=== PATIENT | male | born 1985 | race Two or more races ===

== ENCOUNTER 2019-10-03 15:18 | Emergency (ER) | payer MEDICAID, OTHER ==
[~2019-10-03] VITALS: Ht 165.1 cm; Wt 135.2 kg
--- NOTE | 2019-10-03 15:36 | NUR ---
ED Nurse Note: PT FROM HOME WALKED IN DUE TO BLEEDING FROM HIS PENIS. PT HAS SEXUAL INTERCOURSE AND HAD SKIN TEAR WITH UNCONTROLLED BLEEDING ON THE TIP OF HIS PENIS RIGHT AFTER. PT HAD HEART TRANSPLANT 22 DAYS AGO AT [facility] AND IS CURRENTLY TAKING ASA 81MG. AAO X4, AMBULATORY. BLEEDING AT THIS TIME IS CONTROLLED.
--- NOTE | 2019-10-03 15:50 | Emergency Room Report ---
History of Present Illness General Chief Complaint: Laceration Source: Patient Present Illness HPI Disclaimer: Please note that this report is being documented using DRAGON technology. This can lead to erroneous entry secondary to incorrect interpretation by the dictating instrument. HPI: 34-year-old male presents for evaluation of laceration to the penis. Patient was engaged in sexual intercourse proximally 1 hour ago felt a sharp pain and noticed some brisk bleeding from the tip of the foreskin. Applied pressure but could not control bleeding. He takes aspirin but no anticoagulants. He was recently the recipient of a heart transplant 1 month ago. Was receiving anticoagulants in the hospital but not discharged on any. Continues to experience some oozing. Denies any pain. No other trauma reported. PMH: Heart transplant PSH: Heart transplant Allergies: Denies Allergies: Coded Allergies: No Known Allergies (Unverified , 10/03/19) Nursing Documentation-PM Past Medical History: No History, Except For Hx Cardiac Problems: Yes - heart transplant 09/2019 Review of Systems All Other Systems: negative except mentioned in HPI Physical Exam Vital Signs Date Time Temp Pulse Resp B/P (MAP) Pulse Ox O2 Delivery O2 Flow Rate FiO2 10/03/19 15:26 99.0 94 18 141/95 (110) 96 Room Air General: Awake and alert, no acute distress HEENT: NC/AT. EOMI. Resp: Normal work of breathing Skin: There is small amount of oozing coming from the frenulum of the penis. Nonpulsatile. No surrounding visible trauma. MSK: Normal tone and bulk. Moving all extremities. No obvious deformity. Neuro: Awake and alert. Mentating appropriately Medical Decision Making Diagnostic Impression: Primary Impression: Laceration ER Course 34-year-old male presents for evaluation of bleeding from the frenulum of the penis sustained a sexual intercourse. He is taking aspirin from a recent heart transplant. Continues to ooze on arrival. TXA soaked gauze was applied which achieved hemostasis. No evidence of rebleeding 1 hour after arrival. He is well-appearing with stable vital signs and stable for outpatient follow-up. Instructed him to abstain from sexual activity until he is fully healed. I also instructed him to discuss with his cardiology whether he is cleared for sexual activity or any physical activity at this point given his recent heart transplant. He understands and agrees with this treatment plan as well as reasons to return to the emergency department. He was discharged home Last Vital Signs Date Time Temp Pulse Resp B/P (MAP) Pulse Ox O2 Delivery O2 Flow Rate FiO2 10/03/19 15:26 99.0 94 18 141/95 (110) 96 Room Air Disposition: HOME, SELF-CARE Condition: Improved Dash Steve MD Oct 03, 2019 15:50
[2019-10-03 16:36] VITALS: BP 143/91
--- NOTE | 2019-10-03 16:36 | NUR ---
ER DISCHARGE NOTE: Patient is cleared to be discharged per ERMD, pt is aox4, on room air, with stable vital signs. pt was given dc instructions, pt was able to verbalize understanding, pt id band removed. pt is able to ambulate with steady gait. pt took all belongings.
== END 2019-10-03 16:56 | disposition home or self-care (01) ==
LOC: EMR 16:25
DX: S31.21XA Laceration without foreign body of penis, initial encounter (principal); Z94.1 Heart transplant status; X58.XXXA Exposure to other specified factors, initial encounter; Y92.9 Unspecified place or not applicable; Z79.82 Long term (current) use of aspirin
CPT/HCPCS: 99282